=== PATIENT | female | born 1965 | race Caucasian/White ===

== ENCOUNTER 2018-11-27 18:42 | Emergency (ER) | payer OTHER ==
[~2018-11-27] VITALS: Ht 154.9 cm; Wt 72.1 kg
[2018-11-27] MEDS ORDERED: Synthroid175 MCG PO (19:31)
[2018-11-27] MEDS ORDERED: INSULANPEN SC ×2 (19:32→20:25)
[2018-11-27] MEDS ORDERED: ZESTORETIC 20-251 EA PO ×2 (19:34→20:25)
[2018-11-27] MEDS ORDERED: Prozac20 MG PO ×2 (19:35→20:25)
[2018-11-27] MEDS ORDERED: CLOR7.5 PO (19:35)
[2018-11-27] MEDS ORDERED: Oxycodone HCl20 M1 PO (19:36)
[2018-11-27] MEDS ORDERED: INVOKANA100 MG PO (20:25)
[2018-11-27] MEDS ORDERED: SYNTHROID175 MCG PO (20:25)
[2018-11-27] MEDS ORDERED: OXYC10TA19 PO (20:27)
== END 2018-11-27 20:55 | disposition home or self-care (01) ==
LOC: ER 18:42
DX: Z76.0 Encounter for issue of repeat prescription (principal); M41.9 Scoliosis, unspecified; E11.9 Type 2 diabetes mellitus without complications; E03.9 Hypothyroidism, unspecified; F43.10 Post-traumatic stress disorder, unspecified; I10 Essential (primary) hypertension; Z88.0 Allergy status to penicillin; Z88.2 Allergy status to sulfonamides; Z88.6 Allergy status to analgesic agent; Z88.8 Allergy status to other drugs, medicaments and biological substances
CPT/HCPCS: 82947; 99283

== ENCOUNTER 2018-12-01 09:25 | Emergency (ER) | payer OTHER ==
[~2018-12-01] VITALS: Ht 154.9 cm; Wt 67.6 kg
[~2018-12-01 09:25] MED LIST: CLOR7.5 PO; INSULANPEN SC; INVOKANA100 MG PO; OXYC10TA19 PO; Oxycodone HCl20 M1 PO; Prozac20 MG PO; SYNTHROID175 MCG PO; Synthroid175 MCG PO; ZESTORETIC 20-251 EA PO
[2018-12-01] MEDS ORDERED: Percocet 5-3251 EACH PO (11:07)
[2018-12-01] MEDS ORDERED: PROM25 PO (11:07)
== END 2018-12-01 11:18 | disposition home or self-care (01) ==
LOC: ER 09:25
DX: R11.2 Nausea with vomiting, unspecified (principal); M54.5 Low back pain; G89.29 Other chronic pain; Z76.0 Encounter for issue of repeat prescription; E11.9 Type 2 diabetes mellitus without complications; E03.9 Hypothyroidism, unspecified; F43.10 Post-traumatic stress disorder, unspecified; I10 Essential (primary) hypertension; Z79.899 Other long term (current) drug therapy; Z79.4 Long term (current) use of insulin; Z79.891 Long term (current) use of opiate analgesic
CPT/HCPCS: 82947; 99283